=== PATIENT | male | born 1965 | race Two or more races ===

== ENCOUNTER 2024-11-26 16:04 | Outpatient (CLI) | payer BC, SELFPAY ==
--- OUTSIDE RECORDS SUMMARY | 2024-11-26 16:07 | XMS_ITS | Clinical Summary ---
Author Organization Healthcare Address [address] [place] [address] Care Team Providers Care [facility] Attendant Name Role Phone Harpreet Anderson MD Primary Care Provider [phone] Allergies No known active allergies Medications metoprolol tartrate (Lopressor) 50 MG tablet Take 1 tablet (50 mg) by mouth 2 (two) times a day. 02/05/20 22 Active DULoxetine (Cymbalta) [address] capsule Take 1 capsule (30 mg) by mouth 1 (one) time each day. 05/27/20 22 Active pantoprazole (Protonix) 40 MG EC tablet Take 1 tablet (40 mg) by mouth 1 (one) time each day. Do not crush, chew, or split. Active celecoxib (CeleBREX) 200 MG capsule Take 1 capsule (200 mg) by mouth 1 (one) time each day. Active Nutritional Supplements (Nutritional Supplement Plus) liquid Take 237 mL by mouth 3 (three) times a day. 7110 mL 11 10/25/19 23 Active acetaminophen (Tylenol) 500 MG tablet Take 2 tablets (1,000 mg) by mouth every 8 (eight) hours. 40 tablet 10/25/19 23 Active Additional Information Patient not taking.Reported on 02/11/2023 tolterodine LA (Detrol LA) 2 MG 24 hr capsule 1 capsule (2 mg). 12/30/19 23 Active gabapentin (Neurontin) 600 MG tablet 10/26/19 24 Active HYDROcodone-acetami nophen ([place]) 10-325 MG tablet 08/31/19 24 Active methenamine hippurate (Hiprex) 1 g tablet 2 (two) times a day. 05/26/20 23 Active morphine CP24 (AVINza) 30 MG 24 hr capsule Do not crush or chew. 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 Resolved Problems Problem Noted Date Diagnosed Date Resolved Date Pressure ulcer of left buttock 10/21/2022 10/24/2022 Pressure ulcer 10/20/2022 10/24/2022 Pressure injury of skin of left buttock 01/25/2022 10/24/2022 Encounters Date Type Department Care Team Description 09/13/2024 8:00 AM EDT Office Visit [facility] [address] [place] [address] Skinny German MD Urinary tract infection associated with catheterization of urinary tract, unspecified indwelling urinary catheter type, initial encounter (Primary Dx) 09/13/2024 Travel from Last 3 Months Family History Medical History Relation Name Comments Cancer Father Diabetes Mother Anesthesia problems Neg Hx Malig Hyperthermia Neg Hx Relation Name Status Comments Father Mother Social History Tobacco Use Types Packs/Day Years Used Date Smoking Tobacco: Every Day Cigarettes 1 15 Started: 02/04/2007; Last attempted to quit: 02/04/2022 Passive Smoke Exposure: Never Smokeless Tobacco: Never Tobacco Cessation:Ready to Q uit: Not Asked; Counseling Given: Not Answered Comments:1 ppd x 15 years. Quit smoking 6 months ago Alcohol Use Standard Drinks/Week Comments Not Currently 0 (1 standard drink = 0.6 oz pur e alcohol) PHQ-2 Answer Date Recorded Patient Health Questionnaire-2 Score 0 09/13/2024 CAGE ASSESSMENT Answer Date Recorded Cage unable to access Not on file 10/20/2022 Cage max number of drinks Not on file 2022 Cage Beverages a week Not on file 10/20/2022 Have you ever felt you should CUT down on your d rinking? 0 10/20/2022 Have you been ANNOYED by people criticizing your drinking? 0 10/20/2022 Have you felt GUILTY about your drinking? 0 10/20/2022 Have you had a drink first t bethel in the morning (EYE-HALF SOLE FITTER) to steady your nerves or to get rid of a hangover? 0 10/20/2022 CAGE Questionnaire Score 0 023 PHQ-2A Answer Date Recorded Patient Health Questionnaire-2 Score 0 12/17/2022 Sex and Gender Information Value Date Recorded Sex Assigned at Not on file Legal Sex Male 8:19 PM EDT Gender Identity Not on file Sexual Orientation Not on file Last Filed Vital Signs Vital Sign Reading Time Taken Comments Blood Pressure 168/89 09/13/2024 9:38 AM EDT Pulse 64 09/13/2024 9:38 AM EDT Temperature 36.3 C (97.3 F) 09/13/2024 9:38 AM EDT Respiratory Rate 19 02/11/2023 9:58 AM EDT Oxygen Saturation 97% 09/13/2024 9:38 AM EDT Inhaled Oxygen Concentration - - Weight 99.8 kg (220 lb) 11/02/2023 11:35 AM EDT Height 180.3 cm (5' 11 ) 09/13/2024 9:38 AM EDT Body Mass Index 30.68 11/02/2023 11:35 AM EDT Plan of Treatment Upcoming Encounters Date Type Department Care Team (Late st Contact Info) Description 03/14/2025 11:30 AM EDT Office Visit [facility] [id number] [place] [address] Skinny German MD [address] [address] Health Maintenance Due Date Last Done Comments [facility]-HIV Screening 1966 [facility]-Hepatitis C Screening 1966 [facility]-Medicare Annual Wellness (AWV) 1966 [facility]-/Child/Adol SDOH Screenings 1966 [facility]- SDOH Screenings 1984 [facility]-Adult SDOH Screenings 1984 [facility]-DTaP,Tdap,and Td Vaccines (1 - Tdap) 1985 [facility]-Hepatitis B Vaccines (1 of 3 - 19+ 3-dose series) 1985 [facility]-Pneumococcal Vaccine: 50+ Years (1 of 2 - PCV) 1985 CT Colonography 2011 Colonoscopy 2011 FIT-DNA 2011 FIT 2011 FOBT 2011 Sigmoidoscopy 2011 [facility]-Colorectal Cancer Screening 2011 [facility]-Zoster Vaccines (1 of 2) 2016 [id number] Vaccine ( - 2023- season) 2024 [facility]-Influenza Vaccine (Season Ended) 2025 [facility]-Depression Screening 09/13/2025 09/13/2024 [facility]-Obesity Intervention Completed 025, 11/02/2023, 02/11/2023, Additional history exists HPV Vaccines Aged Out No longer eligi ble based on patient's age to complete this topic [facility]-HIB Vaccines Aged Out No longer e ligible based on patient's age to complete this topic [facility]-Hepatitis A Vaccines Aged Out No longer eligible based on patient's age to complete this topic [facility]-IPV Vaccines Aged Out No longer e ligible based on patient's age to complete this topic [facility]-Rotavirus Vaccines Aged Out No lo nger eligible based on patient's age to complete this topic Additional Health Concerns Infection Onset Date 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 Yes * Full Code Date Activated Date Inactivated Comments 02/02/2022 5:29 PM 02/02/2022 10:13 PM Question Answer Comments Patient has decision-making capacity? Yes Care Teams Gallery [employer] [facility] Attendant Relationship Specialty Start Date End Date Harpreet Anderson MD [address] [place] [address] PCP - General 03/02/22
== END 2024-11-26 23:59 | disposition home or self-care (01) ==
LOC: LAB.DROPOF 16:04
PROVIDERS: PCP Urology; Visit Provider Urology
DX: R33.9 Retention of urine, unspecified (principal)
CPT/HCPCS: 87086; 87088; 87186